=== PATIENT | female | born 1985 | race Caucasian/White ===

== ENCOUNTER 2016-10-08 16:01 | Emergency (ER) | payer OTHER ==
[~2016-10-08] VITALS: Ht 152.4 cm; Wt 48.1 kg
[2016-10-08 16:27] LABS: ABSOLUTE BASOPHIL COUNT 0 /CUMM (0.0-0.2); ABSOLUTE EOSINOPHIL COUNT 0 /CUMM (0.0-0.7); ABSOLUTE GRANULOCYTE CT 3.8 /CUMM (1.4-6.5); ABSOLUTE LYMPH COUNT 2.7 /CUMM (1.2-3.4); ABSOLUTE MONOCYTE COUNT 0.4 /CUMM (0.10-0.60); BASOPHIL % 0.5 % (0.0-2.0); EOSINOPHIL % 0 % (0-5); GRANULOCYTE % 54.9 % (42.2-75.2); HEMATOCRIT 43.2 % (37-47); MEAN CORPUSCULAR HGB CONC 33.4 G/DL (33.0-37.0); MEAN CORPUSCULAR VOLUME 83.7 FL (81.0-99.0); MEAN PLATELET VOLUME 6.7 FL (7.4-10.4); PLATELET COUNT 345 /CUMM (130-400); RBC DISTRIBUTION WIDTH 13.4 % (11.5-14.5); RED BLOOD CELL CT 5.16 /CUMM (4.20-5.40); WHITE BLOOD CELL COUNT 6.9 /CUMM (4.8-10.8)
[2016-10-08] MEDS ORDERED: MULTI-DAY VITA1 EACH PO (16:52)
[2016-10-08] MEDS ORDERED: NUVARING VAGIN1 EACH VG (16:52)
--- NOTE | 2016-10-08 17:00 | ED CARDIAC/CP/PALPITATIONS ---
History of Present Illness General Chief Complaint: Palpitations Stated Complaint: ?FLUTTERS, EKG DONE AT WALK-IN Source: patient Exam Limitations: no limitations Vital Signs & Intake/Output Vital Signs & Intake/Output Vital Signs Date Time Temp Pulse Resp B/P B/P Pulse O2 O2 Flow FiO2 Mean Ox Delivery Rate 10/08 1848 98.3 96 15 124/74 100 Room Air 10/08 1743 99 Room Air 10/08 1611 99.1 70 16 167/103 98 Room Air Allergies Coded Allergies: Penicillins (HOT FLASH, TINGLING IN LEGS 10/08/16) pine nut (VIOLENT GI UPSET 10/08/16) squid (VIOLENT GI UPSET 10/08/16) Reconcile Medications Etonogestrel/Ethinyl Estradiol (Nuvaring Vaginal Ring) 0.12 MG -0.015 MG/24 HR VAG.RING 1 EACH VG Q30D CONTROL (Reported) use for 3 weeks, skip for 1 week Multivitamin (Multi-Day Vitamins) 1 EACH TABLET 1 TAB PO DAILY SUPPLEMENT ( Reported) Triage Note: TRIAGE: ARRIVES FROM [facility] IN FOR C/O FLUTTERING IN HER CHEST. STATES LAST NIGHT SHE NOTICED IT INTERMITTENTLY WHEN LAYING ON LEFT SIDE. TODAY SHE NOTICED THAT IT IS CONSTANT. DENIES SOB OR ANY EPISODES OF DIAPHORESIS. DENIES HX ANXIETY. STATES WALK IN TOLD HER EKG WAS NORMAL AND SHE SHOULD FOLLOW UP FOR BLOODWORK. EKG ON ARRIVAL NORMAL SINUS RATE 70. Triage Nurses Notes Reviewed? yes Onset: Abrupt Duration: intermittent Timing: recent history Quality/Severity: moderate Radiation: no radiation Prior Chest Pain/Card Workup: no prior chest pain, no prior cardiac workup : No Patient currently breastfeeds: No HPI: Patient is a 31-year-old female who presents to emergency room with concerns of a three-day history of heart palpitations and fluttering sensation. Patient states that 3 days ago on Saturday night while resting lying down left lateral position that she began having symptoms as stated above symptoms did not occur on Saturday however today patient states that symptoms of palpitations and fluttering sensation in her heart has been persistent. Patient denies any fevers chills chest pain and arm pain jaw pain nausea vomiting hemoptysis leg swelling. Patient does use NuvaRing with exogenous estrogen. No history of DVT or PE. Denies any alcohol use or illicit drug use Denies any history of smoking (CONSTANZA ROBERTSON) Past History Travel History Traveled to [place] past 21 day No Medical History Any Pertinent Medical History? none Neurological: NONE EENT: NONE Cardiovascular: NONE Respiratory: NONE Gastrointestinal: NONE Hepatic: NONE Renal: NONE Musculoskeletal: NONE Psychiatric: NONE Endocrine: NONE Blood Disorders: NONE Cancer(s): NONE TOURIST ESCORT/Reproductive: HPV, LEEP Surgical History Surgical History: non-contributory Psychosocial History What is your primary language Ma[place] Tobacco Use: Never used ETOH Use: occasional use Illicit Drug Use: denies illicit drug use Family History Hx Contributory? No (CONSTANZA ROBERTSON) Review of Systems Review of Systems Constitutional: Reports: no symptoms. EENTM: Reports: no symptoms. Respiratory: Reports: no symptoms. Cardiovascular: Reports: see HPI, palpitations. GI: Reports: no symptoms. Genitourinary: Reports: no symptoms. Musculoskeletal: Reports: no symptoms. Skin: Reports: no symptoms. Neurological/Psychological: Reports: no symptoms. Hematologic/Endocrine: Reports: no symptoms. Immunologic/Allergic: Reports: no symptoms. All Other Systems: Reviewed and Negative (CONSTANZA ROBERTSON) Physical Exam Physical Exam General Appearance: no apparent distress, alert, comfortable Cardiovascular: regular rate/rhythm Comments: Well-developed well-nourished person in no acute distress HEENT: Normal EENT exam, extraocular motion intact, no nystagmus. Pupils equally round and reactive to light and accommodation. Nose is atraumatic. External auditory canal and Tympanic membranes clear. Pharynx normal. No swelling or edema. Neck: Supple, no lymphadenopathy, normal range of motion without pain or tenderness Back: Nontender, no CVA tenderness. Cardiovascular: Regular rate and rhythms no murmurs rubs or gallops, normal JVP Respiratory: Chest nontender. No respiratory distress.breath sounds clear to auscultation bilaterally Abdomen: Soft, nontender nondistended, no appreciable organomegaly. Normal bowel sounds. No ascites Extremity: No edema, no calf tenderness to palpation, normal and equal pulses. Neuro: Alert oriented x3, motor sensory normal, cranial nerves II through XII grossly intact. Skin: No appreciable rash on exposed skin, skin is warm and dry. Psych: Mood and affect is normal, memory and judgment is normal. Core Measures ACS in differential dx? Yes Severe Sepsis Present: No Septic Shock Present: No (CONSTANZA ROBERTSON) Progress Differential Diagnosis: AMI, aortic dissection, atrial fibrillation, cholecystitis, CHF/pulm edema, costochondritis, hyperkalemia, hypovolemia, hyperthyroid, hyperventilation, intracranial hemorrhage, musculoskeletal pain, myocarditis, pancreatitis, pericarditis, pneumonia, pneumothorax, PSVT, pulmonary embolism, PUD/GERD, PVCs/PACs, respiratory failure, rib fracture, sepsis, unstable angina, WPW syndrome Plan of Care: Orders Procedure Date/time Status Regular Diet 10/09 B Active Add-on Test (ER Only) 10/08 171 Active D-DIMER 10/08 171 Complete URINE 10/08 162 Complete URINALYSIS 10/08 162 Complete TROPONIN LEVEL 10/08 161 Complete COMPREHENSIVE METABOLIC PANEL 10/08 161 Complete CBC WITHOUT DIFFERENTIAL 10/08 1618 Complete EKG 10/08 1604 Active Laboratory Tests 10/08/16 1633: Urine Color YEL, Urine Clarity HAZY H, Urine pH 7.0, Ur Specific [place] 1.010, Urine Protein NEG, Urine Ketones NEG, Urine Nitrite NEG, Urine Bilirubin NEG, Urine Urobilinogen 0.2, Ur Leukocyte Esterase TRACE H, Ur Microscopic SEDIMENT EXAMINED, Urine WBC 1-3 H, Ur Epithelial Cells MANY H, Urine Bacteria MOD H, Urine Mucus RARE, Urine Hemoglobin NEG, Urine Glucose NEG, Urine Test NEGATIVE 10/08/16 1619: Anion Gap 11, Estimated GFR > 60, BUN/Creatinine Ratio 13.3, Glucose 87, Calcium 9.6, Total Bilirubin 1.5 H, AST 17, ALT 33, Alkaline Phosphatase 60, Troponin I < 0.01, Total Protein 8.1, Albumin 4.7, Globulin 3.4, Albumin/Globulin Ratio 1.4 , D-Dimer < 200, CBC w Diff NO MAN DIFF REQ, RBC 5.16, MCV 83.7, MCH 28.0, RDW 13.4, MPV 6.7 L, Gran % 54.9, Lymphocytes % 38.5, Monocytes % 6.1, Eosinophils % 0, Basophils % 0.5, Absolute Granulocytes 3.8, Absolute Lymphocytes 2.7, Absolute Monocytes 0.4, Absolute Eosinophils 0, Absolute Basophils 0, PUBS MCHC 33.4 Patient currently is resting comfortably and was put on clinical research monitor noted to be normal sinus rhythm EKG was unremarkable Chest x-ray was unremarkable. Upon discharge patient looks well no apparent distress and is strongly advised patient to follow up with cardiology for concerns of presenting complaints. Blood work was unremarkable d-dimer was negative essentially ruling out pulmonary embolus and troponin negative (CONSTANZA ROBERTSON) Diagnostic Imaging: Viewed by Me: Radiology Read. Radiology Impression: no acute abnormality, no fracture Initial ED EK BPM, NSR Comments: PATIENT: ADDIS FOFANA PRESENT AGE: 31 PATIENT ACCOUNT NO: [id number] : 84 LOCATION: [facility] ORDERING PHYSICIAN: CONSTANZA VELEZ SERVICE DATE: 10/08/16 EXAM TYPE: RAD - XRY-CHEST XRAY, PA AND LATERAL EXAMINATION: XR CHEST CLINICAL INFORMATION: Palpitations COMPARISON: None TECHNIQUE: 2 views of the chest were obtained. FINDINGS: No significant abnormality is noted involving the heart, lungs, mediastinum or soft tissues. Mild S-shaped scoliosis of the thoracic and lumbar spine IMPRESSION: Unremarkable examination. DICTATED BY: ABDIAS FUENTES MD (CONSTANZA ROBERTSON) Departure Departure Disposition: HOME OR SELF CARE Condition: Stable Clinical Impression Primary Impression: Heart palpitations Referrals: TOBY YATES MD PATIENT HAS NO PRIMARY CARE DR (PCP/Family) Additional Instructions: As discussed tomorrow if symptoms still continue follow-up with SYSTEMS ANALYSIS MANAGER, Dr. YATES. If symptoms worsen return to emergency room. Departure Forms: Customer Survey General Discharge Information (CONSTANZA ROBERTSON) PA/ART DEALER Co-Sign Statement Statement: ED Attending supervision documentation- [] I saw and evaluated the patient. I have also reviewed all the pertinent lab results and diagnostic results. I agree with the findings and the plan of care as documented in the PA's/ART DEALER's documentation. [X] I have reviewed the ED Record and agree with the PA's/ART DEALER's documentation. [] Additions or exceptions (if any) to the PAs/ART DEALER's note and plan are summarized below: [] (JADEN GRAJEDA,OLIVIA) Critical Care Note Critical Care Note Critical Care Time: non-applicable (CONSTANZA ROBERTSON)
--- NOTE | 2016-10-08 18:36 | RADIOLOGY REPORT ---
EXAMINATION: XR CHEST CLINICAL INFORMATION: Palpitations COMPARISON: None TECHNIQUE: 2 views of the chest were obtained. FINDINGS: No significant abnormality is noted involving the heart, lungs, mediastinum or soft tissues. Mild S-shaped scoliosis of the thoracic and lumbar spine IMPRESSION: Unremarkable examination.
[2016-10-08 18:48] VITALS: BP 124/74
== END 2016-10-08 18:49 ==
LOC: ERH 16:01
PROVIDERS: Emergency Medicine
DX: R00.2 Palpitations (principal)
CPT/HCPCS: 81001; 81025; 93005; 93010